=== PATIENT | male | born 1975 | race African-American/Black ===

== ENCOUNTER 2017-06-06 09:52 | Emergency (ER) | payer OTHER ==
[~2017-06-06] VITALS: Ht 182.9 cm; Wt 127.8 kg
[2017-06-06 09:55] VITALS: Ht 182.9 cm; Wt 127.8 kg
[2017-06-06] MEDS ORDERED: KETOROLAC 60 MG INJ IM STA (10:28)
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
--- NOTE | 2017-06-06 12:45 | RADRPT ---
PROCEDURE: XR Right Wrist. CLINICAL INDICATION: Pain. Injury. TECHNIQUE: AP, lateral and oblique views of the right wrist were performed. COMPARISON: None. FINDINGS: Two small bone fragments are seen along the distal aspect of the scaphoid bone, measuring 3 and 4 mm , suggesting fracture of the scaphoid or trapezium. Subtle ill-defined lucency in the distal scaphoi d favors scaphoid fracture donor site. The joint spaces are maintained. The bony mineralization is normal. The soft tissues are unremarkable. No radiopaque foreign body identified. IMPRESSION: 1. 2 tiny bone fragments are seen along the distal aspect of the scaphoid bone, suggesting scaphoid fracture. Findings can be further clarified with CT scan, if clinically indicated. RPTAT: QQ .Sandoval Voss MD, Date Time Electronically viewed and signed by .Sandoval Voss MD, on 06/06/2017 12:45 .M/
--- NOTE | 2017-06-06 13:09 | RADRPT ---
PROCEDURE: XR Knee. CLINICAL INDICATION: Bilateral knee pain status post fall. TECHNIQUE: AP, lateral and tunneled views of the bilateral knees were obtained. The images reviewe d on a PACS workstation. COMPARISON: None. FINDINGS: Right knee: The distal femur and proximal tibia/fibula are normal in appearance. There is no fractu re. The medial and lateral compartment joint spaces are preserved. There is no abnormal calcificat ion. There is no joint effusion. Hoffa's fat pad is normal in appearance. There is normal appeara nce of the patellofemoral joint. The soft tissues are unremarkable. Left knee: The distal femur and proximal tibia/fibula are normal in appearance. There is no fractur e. The medial and lateral compartment joint spaces are preserved. There is no abnormal calcificati on. There is no joint effusion. Hoffa's fat pad is normal in appearance. There is normal appearan ce of the patellofemoral joint. The soft tissues are unremarkable. IMPRESSION: 1. Normal radiographs of the bilateral knees. No evidence of fracture. RPTAT: HGAS .Brock Shin MD, MD Date Time Electronically viewed and signed by .Brock Shin MD, on 06/06/2017 13:08 .S/
[2017-06-06] MEDS ORDERED: HYDR-902 PO (13:27)
[2017-06-06] MEDS ORDERED: IBUP800T25 PO (13:27)
== END 2017-06-06 13:58 | disposition home or self-care (01) ==
LOC: FTE 09:52
DX: S62.001A Unspecified fracture of navicular [scaphoid] bone of right wrist, initial encounter for closed fracture (principal); S80.02XA Contusion of left knee, initial encounter; S80.01XA Contusion of right knee, initial encounter; W01.0XXA Fall on same level from slipping, tripping and stumbling without subsequent striking against object, initial encounter; Y92.9 Unspecified place or not applicable
CPT/HCPCS: 29125; 73110; 73562; 96372; J1885; Z7502

== ENCOUNTER 2017-06-16 11:21 | Emergency (ER) | payer OTHER ==
[~2017-06-16] VITALS: Wt 128.3 kg
[~2017-06-16 11:21] MED LIST: HYDR-902 PO; IBUP800T25 PO
[2017-06-16] MEDS ORDERED: HYDR-902 PO (12:50)
--- NOTE | 2017-06-16 12:50 | ERD ---
ER Documentation Chief Complaint Chief Complaint RIGHT HAND PAIN S/P FX, PT ON CAST HPI 41-year-old male is status post wrist fracture he saw or so who put a cast on 5 days ago but he states that since he put the cast on he has had more swelling and more pain and he would like the cast removed. He has associated intermittent numbness and tingling in the hand. He was taking [place] but he ran out stenosis currently taking ibuprofen but is not helping. ROS All systems reviewed and are negative except as per history of present illness. Medications Home Meds Active Scripts Hydrocodone/Acetaminophen ([place] 10-325 Tablet) 1 Each Tablet, 1 TAB PO Q6H Y for PAIN, #20 TAB Prov:KATHRYN HUGHES PA-C 06/16/17 Ibuprofen* (Motrin*) 800 Mg Tab, 800 MG PO Q8 Y for PAIN AND OR ELEVATED TEMP, # 30 TAB Prov:PASMI FANGAR F 06/06/17 Hydrocodone/Acetaminophen ([place] 10-325 Tablet) 1 Each Tablet, 1 TAB PO Q6H Y for PAIN, #15 TAB Prov:PASILAMI PENNAR F 06/06/17 Allergies Allergies: Coded Allergies: No Known Allergy (Unverified , 06/06/17) PMhx/Soc Hx Alcohol Use: No Hx Substance Use: No Hx Tobacco Use: No FmHx Family History: No diabetes Physical Exam Vitals Vital Signs Date Time Temp Pulse Resp B/P Pulse Ox O2 Delivery O2 Flow Rate FiO2 06/16/17 11:25 97.2 102 18 137/88 98 Physical Exam Const: [] Head: Atraumatic Eyes: Normal Conjunctiva ENT: Normal External Ears, Nose and Mouth. Neck: Full range of motion..~ No meningismus. Resp: Clear to auscultation bilaterally Cardio: Regular rate and rhythm, no murmurs Ext: Right upper extremity in a volar cast Procedures/MDM Cast was removed. Patient is neurovascularly intact. He was resplinted in a volar wrist splint and given a prescription for [place] and he should follow-up with primary care doctor and orthopedics for further management of his fracture. Patient counseled regarding my diagnostic impression and care plan. Prior to discharge all questions answered. Pt agrees with treatment plan and understands strict return precautions. Pt is instructed to follow up with primary care provider within 24-48 hours. Precautionary instructions provided including instructions to return to the ER if not improving or for any worsening or changing symptoms or concerns. Departure Diagnosis: Primary Impression: Closed fracture of navicular (scaphoid) bone of wrist Condition: Stable KATHRYN HUGHES PA-C Jun 16, 2017 12:50
== END 2017-06-16 13:34 | disposition home or self-care (01) ==
LOC: FTE 11:21
DX: S62.001A Unspecified fracture of navicular [scaphoid] bone of right wrist, initial encounter for closed fracture (principal); X58.XXXA Exposure to other specified factors, initial encounter; Y92.9 Unspecified place or not applicable
CPT/HCPCS: 29125; Z7502

== ENCOUNTER 2018-10-24 11:35 | Emergency (ER) | payer OTHER ==
[~2018-10-24] VITALS: Ht 182.9 cm; Wt 126.9 kg
[~2018-10-24 11:35] MED LIST changes: +HYDR-3980 PO; -HYDR-902 PO; -IBUP800T25 PO; +IBUP800T48 PO
[2018-10-24 11:44] VITALS: BP 145/84; PULSE 95; RESP 19; Ht 182.9 cm; Wt 126.9 kg
[2018-10-24] MEDS ORDERED: KETOROLAC 30 MG INJ IM STA (12:33)
[2018-10-24] MEDS ORDERED: IBUP-1542 PO (14:03)
[2018-10-24] MEDS ORDERED: HYDR-4011 PO (14:03)
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
== END 2018-10-24 14:19 | disposition home or self-care (01) ==
LOC: FTE 11:35
DX: S13.9XXA Sprain of joints and ligaments of unspecified parts of neck, initial encounter (principal); S80.01XA Contusion of right knee, initial encounter; V49.50XA Passenger injured in collision with unspecified motor vehicles in traffic accident, initial encounter
CPT/HCPCS: 72040; 73564; 96372; J1885; Z7502